=== PATIENT | male | born 1970 | race Caucasian/White ===

== ENCOUNTER → 2021-10-06 | Outpatient (CLI) | payer OTHER ==
[~2021-10-06] MED LIST: ADVIL200 M3 PO; COZAAR 25 MG TA25 M1 PO; TRAMADOL 50 MG50 MG PO
== END ==
LOC: M.PC 10-04 09:10
PROVIDERS: ATTEND Physical Medicine & Rehabilitation
DX: M47.26 Other spondylosis with radiculopathy, lumbar region (principal); M51.16 Intervertebral disc disorders with radiculopathy, lumbar region; M25.551 Pain in right hip; M12.88 Other specific arthropathies, not elsewhere classified, other specified site

== ENCOUNTER → 2021-11-01 | Outpatient (CLI) | payer OTHER ==
[~2021-11-01] MED LIST changes: +MELOXICAM15 MG PO
== END | disposition home or self-care (01) ==
LOC: M.PC 09:28
PROVIDERS: ATTEND Physical Medicine & Rehabilitation
DX: M51.16 Intervertebral disc disorders with radiculopathy, lumbar region (principal); M47.26 Other spondylosis with radiculopathy, lumbar region; M54.59 Other low back pain; G89.29 Other chronic pain; M46.98 Unspecified inflammatory spondylopathy, sacral and sacrococcygeal region; M25.551 Pain in right hip; M79.605 Pain in left leg; I10 Essential (primary) hypertension; K21.9 Gastro-esophageal reflux disease without esophagitis; Z98.890 Other specified postprocedural states; Z87.442 Personal history of urinary calculi; Z79.899 Other long term (current) drug therapy

== ENCOUNTER → 2021-11-15 | Outpatient (CLI) | payer OTHER | LOC: M.PC 09:10 | PROVIDERS: ATTEND Physical Medicine & Rehabilitation | DX: M47.26 Other spondylosis with radiculopathy, lumbar region (principal); M51.16 Intervertebral disc disorders with radiculopathy, lumbar region; M79.605 Pain in left leg; M25.551 Pain in right hip; M12.88 Other specific arthropathies, not elsewhere classified, other specified site ==